=== PATIENT | female | born 1965 | race Caucasian/White ===

== ENCOUNTER → 2017-10-02 | Emergency (ER) | payer OTHER ==
[~2017-10-02] VITALS: Ht 167.6 cm; Wt 88.5 kg
[~2017-10-02] MED LIST: AMOX1TAB12 PO; CELEBREX200MG PO; COZAAR50 MG PO; GILTUSS TR TAB1 EACH PO; MEDROLPACK PO; PROVENTIL3 ML/2.5 M IH; TESSALON PERLE100 M1 PO; TUSSI PRES-B L120 M1 PO; VASOTEC20 M1 PO; VASOTEC20 MG PO; ZITHROMAX500 MG PO
== END | disposition home or self-care (01) ==
LOC: ER 11:40
DX: M25.512 Pain in left shoulder (principal); M75.22 Bicipital tendinitis, left shoulder

== ENCOUNTER → 2018-02-16 15:42 | Outpatient (CLI) | payer OTHER | END | disposition home or self-care (01) | LOC: RAD 15:42 | DX: M54.12 Radiculopathy, cervical region (principal) ==

== ENCOUNTER 2018-03-11 07:19 | Outpatient (CLI) | payer OTHER | END 2018-03-11 08:41 | disposition home or self-care (01) | LOC: LAB 07:19 | DX: I10 Essential (primary) hypertension (principal); E78.4 Other hyperlipidemia ==

== ENCOUNTER 2018-04-15 17:03 | Emergency (ER) | payer OTHER ==
[~2018-04-15] VITALS: Ht 167.6 cm; Wt 109.8 kg
== END 2018-04-15 18:39 | disposition home or self-care (01) ==
LOC: ER 17:03
DX: J06.9 Acute upper respiratory infection, unspecified (principal)

== ENCOUNTER → 2018-10-16 | Emergency (ER) | payer OTHER ==
[~2018-10-16] VITALS: Ht 167.6 cm; Wt 95.3 kg
[~2018-10-16] MED LIST changes: +ZESTRIL40 M1 PO
== END | disposition home or self-care (01) ==
LOC: ER 18:48
DX: J06.9 Acute upper respiratory infection, unspecified (principal); H65.193 Other acute nonsuppurative otitis media, bilateral

== ENCOUNTER 2019-01-11 17:52 | Emergency (ER) | payer OTHER ==
[~2019-01-11] VITALS: Ht 167.6 cm; Wt 95.3 kg
== END 2019-01-11 22:18 | disposition home or self-care (01) ==
LOC: ER 17:52
DX: N28.1 Cyst of kidney, acquired (principal)

== ENCOUNTER 2019-09-16 09:25 | Emergency (ER) | payer OTHER ==
[~2019-09-16] VITALS: Ht 167.6 cm; Wt 104.3 kg
[2019-09-16] MEDS ORDERED: KETO10TA2 PO (12:50)
[2019-09-16] MEDS ORDERED: ZITHROMAX500 MG PO (12:50)
== END 2019-09-16 13:00 | disposition home or self-care (01) ==
LOC: ER 09:25
DX: R10.12 Left upper quadrant pain (principal); B96.0 Mycoplasma pneumoniae [M. pneumoniae] as the cause of diseases classified elsewhere

== ENCOUNTER 2020-03-05 18:06 | Emergency (ER) | payer OTHER ==
[~2020-03-05] VITALS: Ht 167.6 cm; Wt 95.3 kg
[~2020-03-05 18:06] MED LIST changes: +KETO10TA2 PO
[2020-03-05] MEDS ORDERED: MACRODANTIN100 M1 PO (20:23)
== END 2020-03-05 21:32 | disposition home or self-care (01) ==
LOC: ER 18:06
DX: N39.0 Urinary tract infection, site not specified (principal)

== ENCOUNTER 2024-06-14 08:57 | Inpatient (IN) | payer OTHER ==
[~2024-06-14] VITALS: Ht 167.6 cm; Wt 89.8 kg
[2024-06-14 08:37] LABS: HEMATOCRIT 41.2 % (36.0-45.00); HEMOGLOBIN 13.8 g/dL (12.0-15.00); MEAN CELL VOLUME 88.6 fL (80.00-100.00); MEAN CORPUSCULAR HEMOGLOBIN 29.6 pg (27.00-32.0); MEAN CORPUSCULAR HGB CONC 33.4 g/dl (32.0-36.0); PLATELET COUNT 308 K/uL (150-450); RED BLOOD COUNT 4.65 M/uL (4.00-6.00); RED CELL DISTRIBUTION WIDTH 14.7 % (11.5-14.5)
[2024-06-14 08:40] LABS: PH,URINE 6.5 (5.0-8.0); URINE APPEARANCE Clear; URINE BILIRRUBIN Negative (NEGATIVE); URINE BLOOD Negative; URINE COLOR Yellow; URINE GLUCOSE Negative (NEGATIVE); URINE KETONE Negative (NEGATIVE); URINE LEUKOCYTE Small; URINE NITRATE Negative; URINE PROTEIN Negative (NEGATIVE); URINE UROBILINOGEN 0.2 E.U./dl
[2024-06-14 08:45] LABS: URINE BACTERIA 71.7 uL (0.0-1933); URINE EPITHELIAL CELLS 9.8 uL (0.0-38.8); URINE RBC 3.6 uL (0.0-20.8); URINE WBC 26.7 uL (0.0-23.2)
[~2024-06-14 08:57] MED LIST changes: +HYDROCHLOROTH12.5 MG; +MACRODANTIN100 M1 PO; +VALTREX1000 MG PO
[2024-06-14 09:10] LABS: PARTIAL THROMBOPLASTIN TIME 29.3 SECONDS (22.0-34.0); PROTHROMBIN TIME 10.9 SECONDS (9.0-11.5)
[2024-06-14 09:22] LABS: ALBUMIN 4.1 gm/dL (3.4-5.0); BILIRUBIN TOTAL 0.52 mg/dL (0.3-1.2); CALCIUM 9.7 mg/dL (8.5-10.1); CREATININE SERUM 0.67 mg/dL (0.55-1.02); GFR 90.72; GLOBULINA 3.6 G/DL (2.4-3.5); POTASSIUM 4.05 mEq/L (3.5-5.1); TOTAL PROTEIN 7.7 gm/dL (6.4-8.2)
[2024-06-14 09:37] LABS: RH POSITIVE
[2024-07-04] MEDS ORDERED: VANCOMYCIN HCL 1,000 MG VIAL IR ONE (10:00)
[2024-07-04] MEDS ORDERED: POVIDONE-IODINE 118 ML BOTT TOP ONE (10:00)
[2024-07-04] MEDS ORDERED: TRANEXAMIC ACID 100MG/1ML (1000MG) AMPUL IV ONE ×2 (10:00)
[2024-07-04] MEDS ORDERED: ISOPROPYL ALCOHOL 30 ML OUNCE TOP ONE (10:00)
[2024-07-04] MEDS ORDERED: LIDOCAINE HCL 1%/EPINEPHRINE 20ML VIAL IJ ONE (10:00)
[2024-07-04] MEDS ORDERED: BUPIVACAINE HCL 30 ML VIAL IJ ONE (10:00)
[2024-07-04] MEDS ORDERED: CEFAZOLIN SODIUM 1,000 MG VIAL IV SCH ×2 (10:00→17:00)
[2024-07-04] MEDS ORDERED: SODIUM CHLORIDE 0.45 % 1,000 ML IV SCH (10:30)
[2024-07-04] MEDS ORDERED: MORPHINE SULFATE 4 MG/ML CARTRIDGE IV PRN (10:30)
[2024-07-04] MEDS ORDERED: ONDANSETRON HCL 2 MG/ML VIAL IV PRN (10:30)
[2024-07-04] MEDS ORDERED: OxyCODONE HCL 5 MG TABLET (ROXICODONE) PO PRN (10:30)
[2024-07-04] MEDS ORDERED: ACETAMINOPHEN 500 MG GEL..CAP PO SCH (12:00)
[2024-07-04] MEDS ORDERED: MORPHINE SULFATE 4 MG/ML VIAL IV ONE ×2 (14:00→14:55)
[2024-07-04] MEDS ORDERED: GABAPENTIN 300 MG CAPSULE PO SCH (17:00)
[2024-07-04 17:36] VITALS: BP 112/68; O2SAT 97
[2024-07-04 23:54] VITALS: BP 117/66; O2SAT 100
[2024-07-05 06:14] LABS: HEMATOCRIT 34.2 % (36.0-45.00); HEMOGLOBIN 11.6 g/dL (12.0-15.00); MEAN CELL VOLUME 87.7 fL (80.00-100.00); MEAN CORPUSCULAR HEMOGLOBIN 29.7 pg (27.00-32.0); MEAN CORPUSCULAR HGB CONC 33.9 g/dl (32.0-36.0); PLATELET COUNT 232 K/uL (150-450); RED BLOOD COUNT 3.91 M/uL (4.00-6.00); RED CELL DISTRIBUTION WIDTH 14.2 % (11.5-14.5)
[2024-07-05 08:00] VITALS: BP 106/71; O2SAT 99
[2024-07-05] MEDS ORDERED: SENNOSIDES 1 TAB TABLET PO SCH (09:00)
[2024-07-05] MEDS ORDERED: APIXABAN 2.5 MG TABLET PO SCH (09:00)
[2024-07-05 16:00] VITALS: BP 98/66; O2SAT 99
[2024-07-06 00:55] VITALS: BP 107/60; O2SAT 97
[2024-07-06 08:08] LABS: HEMATOCRIT 35.9 % (36.0-45.00); HEMOGLOBIN 11.9 g/dL (12.0-15.00); MEAN CELL VOLUME 87.4 fL (80.00-100.00); MEAN CORPUSCULAR HGB CONC 33.2 g/dl (32.0-36.0); PLATELET COUNT 228 K/uL (150-450); RED CELL DISTRIBUTION WIDTH 14.4 % (11.5-14.5)
[2024-07-06 08:48] VITALS: BP 124/68; O2SAT 98
[2024-07-06] MEDS ORDERED: IRON FUM,PS/FOLIC ACID/VITC/B3 1 CAP CAPSULE PO SCH (09:00)
[2024-07-06] MEDS ORDERED: CEFADROXIL500 MG PO (09:41)
[2024-07-06] MEDS ORDERED: HORIZANT300 MG PO (09:41)
[2024-07-06] MEDS ORDERED: PERCOCET 5-3251 EACH PO (09:41)
[2024-07-06] MEDS ORDERED: ELIQUIS2.5 MG PO (09:41)
== END 2024-07-06 13:39 | DRG 470 ==
LOC: SURH 06-25 09:00 → SURG 07-04 05:05 → O/R 07-04 05:05 → SURG 07-04 12:44
PROVIDERS: ADMIT Orthopaedic Surgery; ATTEND Orthopaedic Surgery
PROC: 0SR90JZ Replacement of Right Hip Joint with Synthetic Substitute, Open Approach (ICD-10-PCS; principal; 2024-07-04 07:00)
DX: M16.11 Unilateral primary osteoarthritis, right hip (principal)